=== PATIENT | male | born 1970 | race Caucasian/White ===

== ENCOUNTER 2023-11-22 11:15 | Outpatient (RCR) | payer OTHER | END 2023-12-01 | disposition home or self-care (01) | LOC: WSOT | DX: M20.011 Mallet finger of right finger(s) (principal) ==

== ENCOUNTER 2023-12-20 09:45 | Outpatient (RCR) | payer OTHER | END 2024-01-01 | disposition home or self-care (01) | LOC: WSOT | DX: M79.641 Pain in right hand (principal) ==